=== PATIENT | male | born 1955 | race Caucasian/White ===

== ENCOUNTER 2017-07-04 04:38 | Inpatient (IN) | payer OTHER, BC ==
[~2017-07-04] VITALS: Ht 182.9 cm; Wt 99.6 kg
[~2017-07-04 04:38] MED LIST: ASPIRIN325 MG PO; ASPIRIN81 M1 PO; AUGMENTIN875 MG PO; CRESTOR10 MG PO; CRESTOR20 MG PO; CRESTOR40 MG PO; GABAPENTIN300 MG PO; LANTUS (UNITS)1 UNIT IV; LANTUS 3 M100 UNITS/ PO; LANTUS 3 M100 UNITS1 SC; METOPROL; NOVOLIN,HU100 UNITS/ SC; NOVOLOG (UNITS1 UNIT IV; NOVOLOG100 UNIT/3 SQ; OXYCODONE HCL10 MG PO; PLETAL100 MG PO; PRINIVIL20 MG PO; TOPROL XL50 MG PO; TORADOL10 MG PO; TRAZODONE HCL50 MG PO; ULTRAM50 MG PO; VALIUM5 MG PO; ZESTRIL,PRINIVI10 MG PO
[2017-07-04 05:47] LABS: CHLORIDE 108 mEq/L (99-109); POTASSIUM 4.6 mEq/L (3.7-5.4); SODIUM 140 mEq/L (136-147)
[2017-07-04 05:49] LABS: GLUCOSE 184 mg/dL (70-99)
[2017-07-04 05:52] LABS: HEMATOCRIT 36.5 % (38.0-50.0); HEMOGLOBIN 12.7 G/DL (12.5-16.6); MCH 29.1 PG (29.0-34.0); MCHC 34.8 G/DL (30.0-36.0); MCV 83.7 FL (86-99); PLATELET COUNT 173 K/uL (156-360); RBC DIS.WIDTH-SD 39.6 % (39-53); RED BLOOD COUNT 4.36 M/uL (4.00-5.50); WHITE BLOOD COUNT 6.8 K/uL (4.1-10.2)
[2017-07-04 05:53] LABS: CREATININE 1.8 mg/dL (0.6-1.3); GFR ESTIMATE (CALCULATED) 41 mL/min/ (58.99-99999)
[2017-07-04 05:54] LABS: UREA NITROGEN (BUN) 46 mg/dL (9-23)
[2017-07-04 06:00] LABS: TROP-I INTERPRETATION NEGATIVE; TROPONIN-I 0.01 ng/mL (0.0-0.30)
[2017-07-04 08:01] LABS: ALBUMIN 4.1 g/dL (3.2-4.8); CHLORIDE 105 mEq/L (99-109); SODIUM 135 mEq/L (136-147)
[2017-07-04 08:04] LABS: GLUCOSE 196 mg/dL (70-99); TOTAL PROTEIN 6.6 g/dL (6.4-8.3)
[2017-07-04 08:07] LABS: ALKALINE PHOSPHATASE 93 IU/L (3-129)
[2017-07-04 08:08] LABS: CREATININE 1.7 mg/dL (0.6-1.3); GFR ESTIMATE (CALCULATED) 44 mL/min/ (58.99-99999)
[2017-07-04 08:09] LABS: AST (GOT) 577 IU/L (2-34); DIRECT BILIRUBIN 1.2 mg/dL (0.0-0.3); UREA NITROGEN (BUN) 44 mg/dL (9-23)
[2017-07-04 08:10] LABS: ALT (GPT) 376 IU/L (3-49)
[2017-07-04 08:11] LABS: LIPASE 28 U/L (1.0-51.0)
[2017-07-04] MEDS ORDERED: CO Q-10100 MG PO (10:02)
[2017-07-04] MEDS ORDERED: NOVOLOG 10100 UNITS/ SC (10:03)
[2017-07-04] MEDS ORDERED: TRESIBA FL100 UNIT/1 SC (10:04)
[2017-07-04] MEDS ORDERED: BENAZEPRIL HCL20 MG PO (10:06)
[2017-07-04] MEDS ORDERED: ZETIA10 MG PO (10:06)
[2017-07-04 11:55] LABS: ACETAMINOPHEN (TYLENOL) < 10 mcg/mL (10-30)
[2017-07-04 12:24] VITALS: BP 199/93
[2017-07-04 12:34] VITALS: BP 168/80
[2017-07-04 12:38] LABS: TROP-I INTERPRETATION NEGATIVE; TROPONIN-I 0.02 ng/mL (0.0-0.30)
[2017-07-04 12:52] LABS: HDL CHOLESTEROL 46 MG/DL (Desirable>=40); LDL CHOLESTEROL 49 mg/dL (Desirable<100); NON-HDL CHOLESTEROL 64 mg/dL (Desirable<160); TOTAL CHOLESTEROL 110 mg/dL (Desirable<200); TRIGLYCERIDES 73 MG/DL (Normal: <150)
[2017-07-04 13:25] LABS: HEPATITIS B SURFACE ANTIGEN Nonreactive; HEPATITIS C ANTIBODY Nonreactive
[2017-07-04 13:26] LABS: ANTI-HEPATITIS A VIRUS (IGM) Nonreactive
[2017-07-04 13:27] LABS: ANTI-HEPATITIS B CORE (IGM) Nonreactive
[2017-07-04 18:32] LABS: TROP-I INTERPRETATION NEGATIVE; TROPONIN-I 0.02 ng/mL (0.0-0.30)
[2017-07-04 20:00] VITALS: BP 114/58
[2017-07-04 22:56] LABS: BASOPHIL (%) 0.2 % (0-1); EOSINOPHIL (%) 0.2 % (0-5); HEMATOCRIT 37.2 % (38.0-50.0); IMMATURE GRANULOCYTE (%) 0.4 % (0.0-0.7); LYMPHOCYTE (%) 5.7 % (15-42); LYMPHOCYTE COUNT 0.6 K/uL (1.0-2.8); MCH 29.2 PG (29.0-34.0); MCHC 34.9 G/DL (30.0-36.0); MCV 83.6 FL (86-99); MONOCYTE (%) 7.3 % (3-12); MONOCYTE COUNT 0.8 K/uL (0-0.8); NEUTROPHIL (%) 86.2 % (45-76); NEUTROPHIL COUNT 9.7 K/uL (1.8-6.4); PLATELET COUNT 178 K/uL (156-360); RBC DIS.WIDTH-CV 13.3 % (11.8-14.6); RBC DIS.WIDTH-SD 40.7 % (39-53); RED BLOOD COUNT 4.45 M/uL (4.00-5.50); WHITE BLOOD COUNT 11.3 K/uL (4.1-10.2)
[2017-07-04 23:06] LABS: ALBUMIN 3.9 g/dL (3.2-4.8)
[2017-07-04 23:07] LABS: CHLORIDE 109 mEq/L (99-109); POTASSIUM 4.6 mEq/L (3.7-5.4); SODIUM 139 mEq/L (136-147)
[2017-07-04 23:09] LABS: GLUCOSE 178 mg/dL (70-99); TOTAL PROTEIN 6.5 g/dL (6.4-8.3)
[2017-07-04 23:12] LABS: ALKALINE PHOSPHATASE 114 IU/L (3-129)
[2017-07-04 23:13] LABS: CREATININE 1.4 mg/dL (0.6-1.3); GFR ESTIMATE (CALCULATED) 55 mL/min/ (58.99-99999)
[2017-07-04 23:14] LABS: AST (GOT) 391 IU/L (2-34); UREA NITROGEN (BUN) 29 mg/dL (9-23)
[2017-07-04 23:15] LABS: ALT (GPT) 415 IU/L (3-49)
[2017-07-04 23:16] LABS: LIPASE 31 U/L (1.0-51.0)
[2017-07-04 23:24] LABS: TOTAL BILIRUBIN 2.5 mg/dL (0.0-1.0)
[2017-07-05] VITALS: BP 121/59
[2017-07-05 01:11] LABS: TROP-I INTERPRETATION NEGATIVE; TROPONIN-I 0.01 ng/mL (0.0-0.30)
[2017-07-05 03:22] VITALS: BP 130/58
[2017-07-05 04:00] VITALS: BP 92/62
[2017-07-05 05:29] LABS: HEMATOCRIT 37.3 % (38.0-50.0); HEMOGLOBIN 12.4 G/DL (12.5-16.6); MCH 28.5 PG (29.0-34.0); MCHC 33.2 G/DL (30.0-36.0); MCV 85.7 FL (86-99); PLATELET COUNT 165 K/uL (156-360); RBC DIS.WIDTH-CV 13.6 % (11.8-14.6); RBC DIS.WIDTH-SD 42.5 % (39-53); RED BLOOD COUNT 4.35 M/uL (4.00-5.50); WHITE BLOOD COUNT 9.9 K/uL (4.1-10.2)
[2017-07-05 05:54] LABS: CHLORIDE 111 MEQ/L (99-109); CREATININE 1.4 MG/DL (0.6-1.3); GFR ESTIMATE (CALCULATED) 55 mL/min/ (58.99-99999); POTASSIUM 4.1 MEQ/L (3.7-5.4); SODIUM 139 MEQ/L (136-147); UREA NITROGEN (BUN) 30 mg/dL (9-23)
[2017-07-05 06:22] LABS: GLUCOSE 117 mg/dL (70-99)
[2017-07-05 07:16] VITALS: BP 146/73
[2017-07-05 08:31] LABS: ALBUMIN 3.9 G/DL (3.2-4.8); ALKALINE PHOSPHATASE 123 IU/L (3-129); ALT (GPT) 370 IU/L (3-49); AST (GOT) 331 IU/L (2-34); DIRECT BILIRUBIN 2.3 mg/dL (0.0-0.3); TOTAL BILIRUBIN 3.8 MG/DL (0.0-1.0); TOTAL PROTEIN 6.6 G/DL (6.4-8.3)
[2017-07-05 11:39] VITALS: BP 140/80
[2017-07-05 13:35] LABS: HEMATOCRIT 39.4 % (38.0-50.0); HEMOGLOBIN 13.3 G/DL (12.5-16.6); MCH 28.9 PG (29.0-34.0); MCHC 33.8 G/DL (30.0-36.0); MCV 85.7 FL (86-99); PLATELET COUNT 164 K/uL (156-360); RBC DIS.WIDTH-CV 13.9 % (11.8-14.6); RBC DIS.WIDTH-SD 43.1 % (39-53); WHITE BLOOD COUNT 16.3 K/uL (4.1-10.2)
[2017-07-05 14:01] LABS: ALKALINE PHOSPHATASE 131 IU/L (3-129); ALT (GPT) 319 IU/L (3-49); AST (GOT) 279 IU/L (2-34); DIRECT BILIRUBIN 3.1 mg/dL (0.0-0.3); LIPASE 85 U/L (1.0-51.0); TOTAL PROTEIN 6.2 G/DL (6.4-8.3)
[2017-07-05 14:04] LABS: TOTAL BILIRUBIN 4.7 MG/DL (0.0-1.0)
[2017-07-05 20:10] VITALS: BP 134/63
[2017-07-06 05:03] LABS: ALBUMIN 3.2 g/dL (3.2-4.8); CHLORIDE 113 mEq/L (99-109); POTASSIUM 4.5 mEq/L (3.7-5.4); SODIUM 142 mEq/L (136-147)
[2017-07-06 05:04] LABS: BASOPHIL (%) 0.1 % (0-1); EOSINOPHIL (%) 0 % (0-5); HEMATOCRIT 33.7 % (38.0-50.0); HEMOGLOBIN 11.3 G/DL (12.5-16.6); IMMATURE GRANULOCYTE (%) 0.8 % (0.0-0.7); LYMPHOCYTE (%) 5.8 % (15-42); LYMPHOCYTE COUNT 0.7 K/uL (1.0-2.8); MCHC 33.5 G/DL (30.0-36.0); MCV 86.6 FL (86-99); MONOCYTE (%) 8.3 % (3-12); NEUTROPHIL COUNT 10.2 K/uL (1.8-6.4); PLATELET COUNT 139 K/uL (156-360); RBC DIS.WIDTH-CV 14.2 % (11.8-14.6); RBC DIS.WIDTH-SD 44.7 % (39-53); RED BLOOD COUNT 3.89 M/uL (4.00-5.50)
[2017-07-06 05:05] LABS: GLUCOSE 123 mg/dL (70-99)
[2017-07-06 05:07] LABS: TOTAL BILIRUBIN 2.6 mg/dL (0.0-1.0)
[2017-07-06 05:09] LABS: ALKALINE PHOSPHATASE 108 IU/L (3-129); CREATININE 1.7 mg/dL (0.6-1.3); GFR ESTIMATE (CALCULATED) 44 mL/min/ (58.99-99999)
[2017-07-06 05:10] LABS: UREA NITROGEN (BUN) 37 mg/dL (9-23)
[2017-07-06 05:11] LABS: AST (GOT) 252 IU/L (2-34); DIRECT BILIRUBIN 1.5 mg/dL (0.0-0.3)
[2017-07-06 05:12] LABS: ALT (GPT) 310 IU/L (3-49); LIPASE 4 U/L (1.0-51.0)
[2017-07-06 07:30] VITALS: BP 123/61
[2017-07-06 12:02] VITALS: BP 140/66
[2017-07-06 15:52] VITALS: BP 137/78
[2017-07-06 23:23] VITALS: BP 145/70
[2017-07-07 05:30] LABS: HEMOGLOBIN 11.3 G/DL (12.5-16.6); MCH 28.4 PG (29.0-34.0); MCHC 32.3 G/DL (30.0-36.0); MCV 87.9 FL (86-99); PLATELET COUNT 138 K/uL (156-360); RBC DIS.WIDTH-CV 13.9 % (11.8-14.6); RBC DIS.WIDTH-SD 44.9 % (39-53); RED BLOOD COUNT 3.98 M/uL (4.00-5.50); WHITE BLOOD COUNT 9.6 K/uL (4.1-10.2)
[2017-07-07 06:21] LABS: ALBUMIN 3.2 G/DL (3.2-4.8); ALT (GPT) 173 IU/L (3-49); TOTAL PROTEIN 5.9 G/DL (6.4-8.3)
[2017-07-07 06:28] LABS: ALKALINE PHOSPHATASE 78 IU/L (3-129); AST (GOT) 89 IU/L (2-34); DIRECT BILIRUBIN 0.5 mg/dL (0.0-0.3); TOTAL BILIRUBIN 1.3 MG/DL (0.0-1.0)
[2017-07-07 08:04] VITALS: BP 152/70
[2017-07-07 16:14] VITALS: BP 148/78
[2017-07-07 19:25] VITALS: BP 158/77
[2017-07-08 05:32] LABS: BASOPHIL (%) 0.3 % (0-1); CHLORIDE 109 MEQ/L (99-109); CREATININE 1.3 MG/DL (0.6-1.3); EOSINOPHIL (%) 2.4 % (0-5); EOSINOPHIL COUNT 0.2 K/uL (0-0.3); GFR ESTIMATE (CALCULATED) > 59 mL/min/ (58.99-99999); HEMATOCRIT 31.2 % (38.0-50.0); HEMOGLOBIN 10.4 G/DL (12.5-16.6); IMMATURE GRANULOCYTE (%) 0.4 % (0.0-0.7); LYMPHOCYTE COUNT 1.3 K/uL (1.0-2.8); MCH 28.6 PG (29.0-34.0); MCHC 33.3 G/DL (30.0-36.0); MCV 85.7 FL (86-99); MONOCYTE (%) 7.8 % (3-12); MONOCYTE COUNT 0.6 K/uL (0-0.8); NEUTROPHIL (%) 71.1 % (45-76); NEUTROPHIL COUNT 5.1 K/uL (1.8-6.4); PLATELET COUNT 137 K/uL (156-360); POTASSIUM 3.7 MEQ/L (3.7-5.4); RBC DIS.WIDTH-CV 13.5 % (11.8-14.6); RBC DIS.WIDTH-SD 42.5 % (39-53); RED BLOOD COUNT 3.64 M/uL (4.00-5.50); SODIUM 141 MEQ/L (136-147); UREA NITROGEN (BUN) 25 mg/dL (9-23); WHITE BLOOD COUNT 7.2 K/uL (4.1-10.2)
[2017-07-08 05:38] LABS: GLUCOSE 88 mg/dL (70-99)
[2017-07-08 07:09] VITALS: BP 171/79
[2017-07-08] MEDS ORDERED: HYDROCODON-ACE1 EAC7 PO (11:01)
[2017-07-08] MEDS ORDERED: CIPRO500 MG PO (11:01)
[2017-07-08] MEDS ORDERED: FLAGYL500 MG PO (11:01)
[2017-07-08 11:24] VITALS: BP 158/75
== END 2017-07-08 12:05 | disposition home or self-care (01) | DRG 418 ==
LOC: EME 04:38 → EDOF 11:03 → ENRESERV 11:04 → 4SOUTH 12:10
PROVIDERS: Emergency Medicine; Hospitalist; Internal Medicine; Internal Medicine Gastroenterology; Nurse Practitioner Adult Health; Physician Assistant Medical; Surgery
PROC: 0FT44ZZ Resection of Gallbladder, Percutaneous Endoscopic Approach (ICD-10-PCS; principal; 2017-07-05)
DX: K80.00 Calculus of gallbladder with acute cholecystitis without obstruction (principal); N17.9 Acute kidney failure, unspecified; E86.0 Dehydration; R07.89 Other chest pain; E11.65 Type 2 diabetes mellitus with hyperglycemia; E11.51 Type 2 diabetes mellitus with diabetic peripheral angiopathy without gangrene; E11.42 Type 2 diabetes mellitus with diabetic polyneuropathy; E11.319 Type 2 diabetes mellitus with unspecified diabetic retinopathy without macular edema; I12.9 Hypertensive chronic kidney disease with stage 1 through stage 4 chronic kidney disease, or unspecified chronic kidney disease; E11.22 Type 2 diabetes mellitus with diabetic chronic kidney disease; N18.9 Chronic kidney disease, unspecified; E78.5 Hyperlipidemia, unspecified; I25.10 Atherosclerotic heart disease of native coronary artery without angina pectoris; G89.18 Other acute postprocedural pain; G43.909 Migraine, unspecified, not intractable, without status migrainosus; H54.8 Legal blindness, as defined in USA; I25.2 Old myocardial infarction; F32.9 Major depressive disorder, single episode, unspecified; F41.9 Anxiety disorder, unspecified; Z87.442 Personal history of urinary calculi; Z95.1 Presence of aortocoronary bypass graft; Z89.412 Acquired absence of left great toe; Z89.421 Acquired absence of other right toe(s); Z79.4 Long term (current) use of insulin; Z79.82 Long term (current) use of aspirin; Z83.3 Family history of diabetes mellitus; Z82.49 Family history of ischemic heart disease and other diseases of the circulatory system
CPT/HCPCS: 71045; 71046; 71275; 74150; 74174; 74181; 76705; 80048; 80053; 80061; 80074; 80076; 81003; 82248; 82948; 83605; 83690; 84484; 85025; 85027; 88304; 93005; 94799; 99281; 99285; G0378; G0480; J0131; J0780; J1100; J1170; J1200; J1644; J1815; J1885; J2405; J2543; J2710; J3010; J7030; J7050; J7120; J7643; S0020